=== PATIENT | female | born 1995 | race Caucasian/White ===

== ENCOUNTER 2021-11-19 10:57 | Emergency (ER) | payer OTHER, SELFPAY ==
[2021-11-19 11:14] VITALS: BP 140/81; PULSE 97; RESP 18; TEMP 36.7; O2SAT 99; BMI 37.2
--- NOTE | 2021-11-19 11:26 | ED.GENADULT ---
HPI - General Adult General Chief complaint: Dizziness Stated complaint: lightheaded Time Seen by Provider: 11/19/21 11:01 Source: patient Mode of arrival: ambulatory Limitations: no limitations History of Present Illness HPI narrative: 26-year-old female presents for lightheadedness that occurred at 10:50 this morning. 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 A co-worker said she was pale. She did not syncopize, she did not fall, no chest pain no shortness of breath. States that for the last couple of days she has had episodes of this feeling of lightheadedness. Yesterday these episodes happened twice, today the 1 time. With all of the episodes she has heart palpitations when she feels lightheaded and faint. The episodes occur when she is walking. She has insomnia and is only sleeping 5 hours a night. She will fall asleep and wake up an hour later, waking up 3 times per night. This has happened since she became . In addition she has a frontal headache that started after she was dizzy thios morning, gradual in onset, 10/25, no visual changes, no fever, no stiff neck. She is , 11 did weeks and 6 days, due date June 04. 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 Patient is not on any daily medications except for vitamins, dad had an DE in his late 30s. She is vaccinated for COVID. Has no vaginal bleeding vaginal discharge, pelvic cramping. No abdominal pain, vomiting or diarrhea. She is nauseous in the morning but is able to hold down fluids and food, states she feels that she is hydrated him and has been eating well. No dysuria, no urinary frequency, no hematuria. Related Data Allergies Allergy/AdvReac Type Severity Reaction Status Date / Time almonds Allergy Mild Rash Uncoded 11/19/21 11:28 Review of Systems Constitutional: Constitutional: Denies body ache(s), Denies chills, Denies fatigue, Denies fever(s), Reports headache(s), Denies malaise and Denies weakness Eyes: Eyes: Denies blurry vision, Denies change in vision, Denies diplopia and Denies loss of vision ENT: Reports Normal hearing present, Denies vertigo, Reports dizziness, Denies otalgia, Reports headache(s), Denies mouth pain, Denies disequilibrium, Denies post nasal drip, Denies sinus pain and Denies sore throat Cardiovascular: Cardiovascular: Denies chest pain, Denies syncope, Denies leg edema, Reports lightheadedness, Denies Loss of Consciousness, Reports palpitations and Denies dyspnea Respiratory: Respiratory: Denies chest congestion, Denies cough, Denies hemoptysis, Denies pain on inspiration and Denies dyspnea Gastrointestinal: Gastrointestinal: Denies abdominal pain, Denies hematochezia, Denies constipation, Denies diarrhea, Reports nausea (In the morning which resolves) and Denies vomiting Genitourinary: Genitourinary: Denies abnormal vaginal bleeding, Denies hematuria, Denies dysuria, Denies pelvic pain, Denies flank pain, Denies urinary urgency, Denies vaginal discharge, Denies vaginal odor and Denies vaginal pruritus Musculoskeletal: Musculoskeletal: Reports no additional musculoskeletal complaints, Denies numbness and Denies tingling Integumentary/Breasts: Skin/Breast: Denies rash Neurologic: Reports Normal hearing present, Denies Neuro-related abnormal movements, Denies Abnormal speech present, Denies burning sensations, Denies confusion, Denies vertigo, Reports dizziness, Denies syncope, Reports headache(s), Denies focal weakness, Denies loss of vision, Denies numbness, Denies Other visual disturbances, Denies convulsions, Denies seizure-like activity, Denies Sensory deficit (Neuro), Denies tingling, Denies paresthesias, Denies disequilibrium and Denies weakness Psychiatric: Psychiatric: Denies anxiety, Denies confusion and Denies depression Endocrine: Endocrine: Denies fatigue and Reports palpitations [facility] Past Medical History [facility] Narrative: , due date 06/04/2022 Medical History (Updated 11/19/21 @ 15:56 by DRISS Quiros) No known health problems Social History Social History Alcohol intake: never Patient Tobacco Use Status: Never used Tobacco Use of substances other than those prescribed or required for medical reasons: No Advance Directives: No Advance Directives Information Provided: Yes Patient : Yes Physical Exam ED Vital Signs: Vital Signs - 24 hr 11/19/21 11:14 11/19/21 12:25 11/19/21 12:43 Temperature 98.1 F Pulse Rate 97 90 81 Respiratory Rate 18 16 Blood Pressure 140/81 H 131/71 115/82 Pulse Oximetry 99 99 11/19/21 12:44 11/19/21 12:46 11/19/21 14:57 Temperature Pulse Rate 79 93 100 Respiratory Rate 16 Blood Pressure 121/53 L 122/61 130/81 Pulse Oximetry 99 BMI result Body Mass Index 37.2 Const General: healthy appearing, no acute distress, well developed, alert, awake and anxious; No confusion Nutritional Appearance: well nourished Orientation/consciousness: patient oriented x3 and No confusion Limitations: no limitations HENMT Head: Yes normal to inspection, Yes normocephalic and Yes atraumatic Ears: hearing grossly normal bilaterally, external ears normal, TM's normal bilaterally and EAC's normal General nose exam: Normal external nose present Face and sinus: Yes normal facial exam and Yes sinuses nontender Mouth: Normal oral and palatal mucosa present and malodorous breath Throat: Yes posterior oropharynx normal Eyes Conjunctivae: conjunctivae normal Pupils: Equal, round and reactive pupils present EOM: EOMs intact bilaterally and No Nystagmus present Neck Neck: Yes full ROM, Yes no lymphadenopathy and Yes supple Resp Effort & Inspection: normal respiratory effort and able to speak in complete sentences Auscultation: clear to auscultation bilaterally, no crackles, no rales, no rhonchi and no wheezes Cardio Rate: regular rate Rhythm: regular rhythm Heart sounds: S1 normal heart sound present and S2 normal heart sound present GI Inspection: Yes normal to inspection Palpation (GI): Soft to palpation, nontender, no guarding and not rigid Percussion: Yes normal to percussion Auscultation: normal bowel sounds Skin General skin exam: no rashes or lesions noted Neuro General: patient oriented x3, gait normal and No confusion Cranial nerves: Yes CN's II-XII intact bilaterally, Yes Facial sensation intact/muscles of mastication intact, Yes Equal, round and reactive pupils present, Yes Normal accommodation reflex present, Yes Bilaterally intact EOM present, Yes Nystagmus not present, Yes Normal facial strength present, Yes Midline tongue present, Yes Normal hearing present, Yes Ability to bilaterally rotate head present, Yes Ability to bilaterally elevate shoulders present and No Nystagmus present Cognition (Neuro): normal cognition Speech: No Abnormal speech present Gait exam (Neuro): Normal gait present Motor exam (neuro): 5/5 motor strength present throughout and Pronator motor function not present Sensory Exam: No Sensory deficit (Neuro) Deep tendon reflexes (DTR's): Right brachioradialis reflex intensity grade: 1+, Left brachioradialis reflex intensity grade: 1+, Right patellar reflex intensity grade: 1+ and Left patellar reflex intensity grade: 1+ Coordination: [id number] test normal, [id number] test normal and tandem gait normal Romberg Test: Negative Pupils: Normal pupillary reactivity/response: bilateral Extrem General: Yes normal to inspection and Yes full ROM Psych Appearance: grossly normal Mental Status: mental status grossly normal Speech and movement: Normal speech and movement present Affect: Anxious affect present Attitude: cooperative Thought process: Normal thought process present Course Course Course Narrative: 11:40 26-year-old female who is 11 weeks 6 days , , presents for lightheadedness, heart palpitations, insomnia, and mild headache. No pelvic pain, vaginal bleeding, abdominal pain, current nausea, vomiting, diarrhea On exam, patient has mildly increased blood pressure (140/81), she is only 12 weeks so does not meet criteria for preeclampsia, however will trend blood pressure. Patient has a completely benign neurological exam, no signs of DVT, not hypoxic or tachycardic, not short of breath, no chest pain. Discussed with Dr Allen the utility of d-dimer in patient, Dr Allen agreed that this is unlikely pulmonary embolism. Will not d-dimer at this time. Will get urine, labs including HCG, and troponin, will get EKG and perform orthostatics. Will give fluids and Tylenol. Reevaluation(s) Reevaluation #1: Negative orthostatics, labs are only remarkable for mildly elevated ALT at 35. EKG shows no ischemia, troponin 13.4. Vitals remain stable, will repeat troponin in 3 hours. Urine is negative Hcg is 62,600. On re-exam, patient's headache is resolved, she is feeling better. No lightheadedness, presyncope, vertigo, chest pain, shortness of breath, since she has been in the emergency room. Her vitals have been stable. Blood pressures are normalizing (readings of 131/71, 115/82, 121/53, 122/61) patient is less anxious. Blood pressure most recently is 122/61. Reevaluation #2: Repeat troponin is 13.8, no delta change from 13.4 Will have patient call her manager mall today to tell them about today's emergency room visit, she has an appointment early next week with them. Gave her strict return precautions, if patient has more lightheadedness, if she actually faints, she has chest pain, shortness of breath, sudden severe headache, abdominal pain, vomiting, pelvic pain, vaginal bleeding or discharge, she must return to the emergency room immediately. Patient verbalized agreement and understanding of the plan. All of her questions were answered. Medical Decision Making Lab Data Result diagrams: 11/19/21 11:47 11/19/21 11:48 Labs: Lab Results 11/19/21 11/19/21 11/19/21 Range/Units 11:47 11:47 11:48 WBC 8.9 (4.8-10.8) X10*3/uL RBC 4.83 (4.20-5.50) X10*6/uL Hgb 13.0 (12.0-16.0) g/dl Hct 40.7 (37.0-47.0) % MCV 84.3 (80.0-98.0) fL MCH 26.9 L (27.0-33.0) pg MCHC 31.9 (31.0-35.0) g/dl RDW 13.9 (11.0-16.0) % Plt Count 261 (160-400) X10*3/uL MPV 11.0 (9.4-12.3) fL Immature Gran % (Auto) 0.3 (0.0-0.4) % Neut % (Auto) 63.7 (45-73) % Lymph % (Auto) 20.6 (20-40) % [place] % (Auto) 6.4 (2-11) % Eos % (Auto) 8.7 H (0-4) % Baso % (Auto) 0.3 (0-2) % Lymph # (Auto) 1.8 (1.2-4.9) X10*3/uL [place] # (Auto) 0.6 (0.1-1.2) X10*3/uL Eos # (Auto) 0.8 H (0.0-0.4) X10*3/uL Baso # (Auto) 0.0 (0.0-0.2) X10*3/uL Abs Immat Gran (auto) 0.03 (0.00-0.03) X10*3/uL Absolute Neuts (auto) 5.7 (2.0-8.3) x10*3/uL Absolute Nucleated RBC 0.000 (0.0-0.012) X10*3/uL Nucleated RBC % (auto) 0.0 (0.0-0.2) /100WBC Sodium 136 (135-145) mmol/L Potassium 4.2 (3.3-5.1) mmol/L Chloride 104 (96-108) mmol/L Carbon Dioxide 24 (22-29) mmol/L Anion Gap 12 (12-20) BUN 9 (9-16) mg/dL Creatinine 0.66 (0.5-1.4) mg/dL Estim Creat Clear Calc 170.3 Estimated GFR > 60 Random Glucose 82 (60-115) mg/dL Calcium 9.2 (8.4-10.2) mg/dL Total Bilirubin 0.3 (0.0-1.0) mg/dL AST 20 (5-31) U/L ALT 35 H (0-31) U/L Alkaline Phosphatase 60 (39-117) U/L Troponin I High Sens 13.4 (<3.5-17.0) ng/L Total Protein 7.0 (6.5-8.0) g/dL Albumin 3.7 (3.5-5.0) g/dL Beta HCG, Quant 49745 mIU/mL Urine Color Urine Appearance Urine pH (5.0-8.0) Ur Specific [place] (1.005-1.025) Urine Protein (NEG-TRACE) MG/DL Urine Glucose (UA) (NEG) MG/DL Urine Ketones (NEG) MG/DL Urine Blood (NEG) Urine Nitrite (NEG) Ur Leukocyte Esterase (NEG) 11/19/21 11/19/21 Range/Units 13:00 15:01 WBC (4.8-10.8) X10*3/uL RBC (4.20-5.50) X10*6/uL Hgb (12.0-16.0) g/dl Hct (37.0-47.0) % MCV (80.0-98.0) fL MCH (27.0-33.0) pg MCHC (31.0-35.0) g/dl RDW (11.0-16.0) % Plt Count (160-400) X10*3/uL MPV (9.4-12.3) fL Immature Gran % (Auto) (0.0-0.4) % Neut % (Auto) (45-73) % Lymph % (Auto) (20-40) % [place] % (Auto) (2-11) % Eos % (Auto) (0-4) % Baso % (Auto) (0-2) % Lymph # (Auto) (1.2-4.9) X10*3/uL [place] # (Auto) (0.1-1.2) X10*3/uL Eos # (Auto) (0.0-0.4) X10*3/uL Baso # (Auto) (0.0-0.2) X10*3/uL Abs Immat Gran (auto) (0.00-0.03) X10*3/uL Absolute Neuts (auto) (2.0-8.3) x10*3/uL Absolute Nucleated RBC (0.0-0.012) X10*3/uL Nucleated RBC % (auto) (0.0-0.2) /100WBC Sodium (135-145) mmol/L Potassium (3.3-5.1) mmol/L Chloride (96-108) mmol/L Carbon Dioxide (22-29) mmol/L Anion Gap (12-20) BUN (9-16) mg/dL Creatinine (0.5-1.4) mg/dL Estim Creat Clear Calc Estimated GFR Random Glucose (60-115) mg/dL Calcium (8.4-10.2) mg/dL Total Bilirubin (0.0-1.0) mg/dL AST (5-31) U/L ALT (0-31) U/L Alkaline Phosphatase (39-117) U/L Troponin I High Sens 13.8 (<3.5-17.0) ng/L Total Protein (6.5-8.0) g/dL Albumin (3.5-5.0) g/dL Beta HCG, Quant mIU/mL Urine Color YELLOW Urine Appearance CLEAR Urine pH 6.5 (5.0-8.0) Ur Specific [place] 1.020 (1.005-1.025) Urine Protein NEG (NEG-TRACE) MG/DL Urine Glucose (UA) NEG (NEG) MG/DL Urine Ketones NEG (NEG) MG/DL Urine Blood NEG (NEG) Urine Nitrite NEG (NEG) Ur Leukocyte Esterase NEG (NEG) ECG Data Interpretation: Sinus at a rate of 91, HI interval 126, QRS 84, QTC 430, normal axis, no ST depressions or elevations, no T-wave abnormalities, normal EKG Discharge Plan Discharge Clinical Impression: Light-headed feeling Patient Disposition: Home, Self-Care Instructions: Lightheadedness (ED) Additional Instructions: All of your labs, your urine, and your EKG were negative today. If you have chest pain, shortness of breath, pelvic pain, vaginal bleeding, vaginal discharge, abdominal pain, nausea vomiting, or if you have lightheadedness again, or you actually faint, you must return to the emergency room immediately. Please call your manager [employer] [place], tell them what happened, see if they want to see you sooner than next Tuesday.
--- NOTE | 2021-11-19 11:29 | ECG_ITS ---
Test Reason : DIZZINESS Blood Pressure : / mmHG Vent. Rate : 091 BPM Atrial Rate : 091 BPM P-R Int : 126 ms QRS Dur : 084 ms QT Int : 350 ms P-R-T Axes : 041 075 020 degrees QTc Int : 430 ms Normal sinus rhythm Normal ECG No previous ECGs available Referred By: Ebony Starkey Electronically Signed By:SHAHLA FLOREZ MD
[2021-11-19] MEDS: Acetaminophen 325 MG TABLET 650 MG PO (11:40)
[2021-11-19 11:55] LABS: MANUAL DIFF FLAG NO
[2021-11-19 12:00] LABS: Basophils Percent Auto 0.3 % (0-2); Eosinophils Absolute Auto 0.8 X10*3/uL (0.0-0.4); Eosinophils Percent Auto 8.7 % (0-4); Hematocrit 40.7 % (37.0-47.0); Imm Gran Abs Auto 0.03 X10*3/uL (0.00-0.03); Imm Gran Pct Auto 0.3 % (0.0-0.4); Lymphocytes Absolute Auto 1.8 X10*3/uL (1.2-4.9); Lymphocytes Percent Auto 20.6 % (20-40); Mean Corpuscular HGB Conc 31.9 g/dl (31.0-35.0); Mean Corpuscular Hemoglobin 26.9 pg (27.0-33.0); Mean Corpuscular Volume 84.3 fL (80.0-98.0); Monocytes Absolute Auto 0.6 X10*3/uL (0.1-1.2); Monocytes Percent Auto 6.4 % (2-11); Neutrophils Absolute Auto 5.7 x10*3/uL (2.0-8.3); Neutrophils Percent Auto 63.7 % (45-73); Platelet Count 261 X10*3/uL (160-400); Red Blood Count 4.83 X10*6/uL (4.20-5.50); Red Cell Distribution Width 13.9 % (11.0-16.0); White Blood Count 8.9 X10*3/uL (4.8-10.8)
[2021-11-19 12:17] LABS: Alanine Aminotransferase 35 U/L (0-31); Albumin Level 3.7 g/dL (3.5-5.0); Alkaline Phosphatase 60 U/L (39-117); Anion Gap 12 (12-20); Aspartate Amino Transferase 20 U/L (5-31); Bilirubin Total 0.3 mg/dL (0.0-1.0); Blood Urea Nitrogen 9 mg/dL (9-16); Calcium 9.2 mg/dL (8.4-10.2); Carbon Dioxide 24 mmol/L (22-29); Chloride 104 mmol/L (96-108); Creatinine Clr Calc Pharmacy 170.3; Estimated Glomerular Filt Rate > 60; Glucose Random 82 mg/dL (60-115); Potassium 4.2 mmol/L (3.3-5.1); Sodium 136 mmol/L (135-145)
[2021-11-19 12:21] LABS: Troponin-I High Sensitivity 13.4 ng/L (<3.5-17.0)
--- NOTE | 2021-11-19 12:22 | PC.NURSE ---
pt tolerating po w/o issue, given copius amounts of water.
[2021-11-19 12:25] VITALS: BP 131/71; PULSE 90; RESP 16; O2SAT 99
--- NOTE | 2021-11-19 12:25 | PC.NURSE ---
ambulating to and from bathroom w steady gait for ua spec.
[2021-11-19 12:43] VITALS: BP 115/82; PULSE 81
[2021-11-19 12:44] VITALS: BP 121/53; PULSE 79
[2021-11-19 12:46] VITALS: BP 122/61; PULSE 93
[2021-11-19 12:54] LABS: HCG Quantitative 62600 mIU/mL
[2021-11-19 13:05] LABS: Appearance Urine CLEAR; Color Urine YELLOW; Glucose Urine UA NEG (NEG); Leukocyte Esterase Urine NEG (NEG); Nitrite Urine NEG (NEG); PH 6.5 (5.0-8.0); Urine Blood NEG (NEG); Urine Ketones NEG (NEG); Urine Protein NEG (NEG-TRACE)
[2021-11-19 14:57] VITALS: BP 130/81; PULSE 100; RESP 16; O2SAT 99
[2021-11-19 15:25] LABS: Troponin-I High Sensitivity 13.8 ng/L (<3.5-17.0)
== END 2021-11-19 16:14 | disposition home or self-care (01) ==
PROVIDERS: Physician Assistant; Emergency Provider Emergency Medicine
DX: O26.91 Pregnancy related conditions, unspecified, first trimester (principal); R42 Dizziness and giddiness; Z3A.11 11 weeks gestation of pregnancy
CPT/HCPCS: 36415; 80053; 81003; 84484; 84702; 85025; 93005; 96374; 99284; 99285

== ENCOUNTER 2022-11-15 07:10 | Emergency (ER) | payer OTHER, SELFPAY ==
--- NOTE | ~2022-11-15 | XR_ITS ---
EXAMINATION: XR KNEE, LEFT CLINICAL INFORMATION: Pain COMPARISON: None available. TECHNIQUE: Four views of the left knee. FINDINGS: Bone alignment is normal. No fracture or dislocation. Normal joint spaces. Small joint effusion. XR/XR knee LT 3V IMPRESSION: Small joint effusion otherwise unremarkable exam
[2022-11-15 07:42] VITALS: BP 147/94; PULSE 75; RESP 16; O2SAT 96; BMI 51.9
--- NOTE | 2022-11-15 07:51 | ED_ITS ---
HPI - Extremity Injury (Lower) General Chief Complaint: Extremity Problem Stated Complaint: L knee pain Time Seen by Provider: 11/15/22 07:22 Source: patient Mode of arrival: ambulatory Limitations: no limitations History of Present Illness complaint: knee injury Onset (ago): week(s) (1) Injury: Left: knee Type of Injury: unknown Severity: severe Severity scale (1-10): 8 Relieving factors: rest Exacerbating factors: weight bearing and movement Associated symptoms: ambulatory Other symptoms: none Treatments prior to arrival: other (none) Related Data Previous Rx's Medication Instructions Recorded meloxicam 15 mg tablet 15 mg PO DAILY #20 tabs 11/15/22 Allergies Allergy/AdvReac Type Severity Reaction Status Date / Time almonds Allergy Mild Rash Uncoded 11/15/22 07:51 PMFSH Past Medical History Medical History No known health problems Social History Social History Alcohol intake: never Patient Tobacco Use Status: Never used Tobacco Smoked in Last 30 Days: No Use of substances other than those prescribed or required for medical reasons: No Advance Directives: No Advance Directives Information Provided: Yes Patient : No Physical Exam Vital Signs: Vital Signs: Last Vital Signs Pulse 75 11/15/22 07:42 Resp 16 11/15/22 07:52 BP 147/94 H 11/15/22 07:42 Pulse Ox 96 11/15/22 07:42 O2 Del Method Room Air 11/15/22 07:42 BMI result Body Mass Index 51.9 GEN: Well developed, no acute distress, alert, oriented HEENT: Normocephalic, atraumatic, normal external ears, nose appears normal Eyes: Normal to appearance Neck: Supple, no lymphadenopathy Respiratory: Talks in complete sentences, no respiratory distress Extremities: No clubbing cyanosis or edema, no joint laxity, NVI, no effusion, tenderness along the patellar tendon, no bursitis, no deformity Neurologic: No focal neurologic deficits, cranial nerves 2-12 intact, gait normal Skin: No rash Course Course Course Narrative: Left Knee pain, nontraumatic Plan XR, APAP, NSAIDs Medications Administered Discontinued Medications Generic Name Dose Route Start Last Admin Trade Name Freq PRN Reason Stop Dose Admin Acetaminophen 975 mg 11/15/22 07:50 11/15/22 07:56 Acetaminophen 325 Mg Tablet PO 11/15/22 07:51 975 mg ONCE ONE Administration Ibuprofen 600 mg 11/15/22 07:50 11/15/22 07:57 Ibuprofen 600 Mg Tablet PO 11/15/22 07:51 600 mg ONCE ONE Administration Medical Decision Making Medical Decision Making [facility] Narrative: Acute left knee pain - non traumatic DD: arthritis, tendonitis, internal knee derrangement, sprain, strain. Plan : XR, PO meds Differential Diagnosis Differential Diagnoses: The differential diagnosis associated with the presentation includes (see above) Independent Interpretation I performed an independent interpretation of an: Plain X-Ray (Left knee: No acute disease) Prescription Management I considered prescription management with: Pain Medication Discharge Plan Discharge Clinical Impression: Acute pain of left knee Patient Disposition: Home, Self-Care Instructions: Knee Pain (ED) Additional Instructions: Meloxicam daily for 10-14 days Tylenol 1000 mg every 6 hours as needed for additional pain relief Capsaicin Cream three times daily as needed Heat/ICE as needed Prescriptions: New meloxicam 15 mg tablet 15 mg PO DAILY Qty: 20 0RF Referrals: Prasanna Stacy MD [Physician] - 1 week Stand Alone Forms: Work/School Release
[2022-11-15 07:52] VITALS: RESP 16
[2022-11-15] MEDS: Acetaminophen 325 MG TABLET 975 MG PO (07:56)
[2022-11-15] MEDS: Ibuprofen 600 MG TABLET PO (07:57)
--- NOTE | 2022-11-15 07:58 | PC.NURSE ---
Pt on stretcher, airway open and patent, no obvious signs of distress, equal chest rise and fall, no difficulty/labored breathing. Pt a&ox4, skin normal for ethnicity, warm, and dry. Lung sounds clr bilaterally. Heart sounds normal. Bowel sounds present all smith. No edema noted. Pt complaining of left knee pain for the past week. Knee unremarkable, no swelling/edema, no redness, no warmness to touch.
== END 2022-11-15 08:40 | disposition home or self-care (01) ==
PROVIDERS: Emergency Provider Emergency Medicine; PCP Pediatrics
DX: M25.562 Pain in left knee (principal)
CPT/HCPCS: 73562; 99283; 99284

== ENCOUNTER 2023-01-25 13:23 | Emergency (ER) | payer OTHER, SELFPAY ==
--- NOTE | ~2023-01-25 | XR_ITS ---
EXAMINATION: XR KNEE, RIGHT CLINICAL INFORMATION: Right knee pain COMPARISON: None available. TECHNIQUE: Four views of the right knee. FINDINGS: Bones and soft tissues are normal. No fracture or joint effusion. Alignment is anatomic. Joint spaces are well maintained. No abnormal soft tissue calcification. XR/XR knee RT 4V IMPRESSION: Normal right knee.
[2023-01-25 13:30] VITALS: BP 149/80; PULSE 76; RESP 18; O2SAT 97; BMI 53.1
--- NOTE | 2023-01-25 13:31 | ED_ITS ---
HPI - General Adult General Chief complaint: Extremity Injury, Lower Stated complaint: R Knee Pain No Injury Time Seen by Provider: 01/25/23 13:45 Source: patient Mode of arrival: ambulatory Limitations: no limitations History of Present Illness HPI narrative: 27 yo morbidly obese female presents to the ER for evaluation of right knee pain for the last 2 weeks. She denies any trauma or known injury. She states she feels clicking sensation whenever she bends her knee or when she walks down stairs. She denies any redness or significant swelling. She states the pain is worst when she is on her feet for too long or sitting in the same position for too long. complaint: right knee pain Onset (ago): week(s) (2) Location: right and lower extremity Radiation: non-radiation Severity: moderate Severity scale (1-10): 6 Quality: aching Pain Consistency: intermittent Relieving factors: rest Exacerbating factors: movement Associated symptoms: denies other symptoms Treatments prior to arrival: none Related Data Previous Rx's Medication Instructions Recorded meloxicam 15 mg tablet 15 mg PO DAILY #20 tabs 11/15/22 Allergies Allergy/AdvReac Type Severity Reaction Status Date / Time almonds Allergy Mild Rash Uncoded 11/15/22 07:51 Review of Systems Review of Systems: Yes all other systems are reviewed and are negative PMFSH Past Medical History Medical History No known health problems Social History Social History Alcohol intake: never Patient Tobacco Use Status: Never used Tobacco Advance Directives: No Physical Exam ED Vital Signs: Vital Signs - 24 hr 01/25/23 13:30 Pulse Rate 76 Respiratory Rate 18 Blood Pressure 149/80 H Pulse Oximetry 97 Oxygen Delivery Method Room Air BMI result Body Mass Index 53.1 Appearance: Alert. Oriented X3. No acute distress. HEENT: normal inspection CVS: Normal heart rate and rhythm. Pulses normal. Respiratory: No respiratory distress. Skin: Skin warm and dry. Normal skin color. Normal skin turgor. No rashes. Extremities: nromal inspection of bilateral knees. no swelling or erythema. tenderness of the infrapatellar region and medial joint line. normal passive ROM. Negative anterior drawer test. steady gait Neuro: Oriented X 3. No motor deficit. No sensory deficit. Course Course Course Narrative: This is an RME: Additional HPI, ROS, PE not included below will be deferred to primary provider. Patient is a 37 year old female with 2 weeks of right knee pain when walking and a clicking noise . Patient reports history of left knee pain but it was not as bad as this. patient reports 5/10 pain. Patient denies fevers, chills, headache, vision changes, numbness, tingling, chest pain, SOB. Plan: xray Medical Decision Making Medical Decision Making MDM Narrative: 27 yo obese female presenting with nontraumatic right knee pain x2 weeks. No appreciated joint laxity. XR is negative. Patient would benefit from orthopedics referral for further evaluation and treatment. She is ambulatory. Recommended NSAIDs, rest, ice, compression, elevation. She will follow-up with orthopedics. She is stable for discharge home. Patient agrees with plan. Differential Diagnosis Differential Diagnoses: The differential diagnosis associated with the presentation includes knee sprain, internal derangement/ligament or meninscus injury Independent Interpretation I performed an independent interpretation of an: Plain X-Ray Interpretation: X-ray reviewed, normal right knee, agrees radiology read Radiology Impression Discussion of test interpretation with radiology: I have reviewed the radiologist's reading. Radiologist Impression: 3 XR/XR knee RT 4V IMPRESSION: Normal right knee. External Record Review External record reviewed: Prior outpatient labs and Prior outpatient radiology Prescription Management I considered prescription management with: Pain Medication Chronic Conditions Patient?s care impacted by: Other (Morbid obesity) Critical Care Time Critical Care Time Critical Care Time: No Discharge Plan Discharge Clinical Impression: Acute knee pain Patient Disposition: Home, Self-Care Instructions: Knee Pain (ED) Additional Instructions: Your x-ray was normal Recommend following up with Orthopedics for further evaluation and treatment - call for an appointment Take Motrin and Tylenol for pain Wear an LAMBERTO wrap or over the counter knee brace for support If you develop new or worsening symptoms call 911 or come back to the ER for further evaluation. Prescriptions: No Action meloxicam 15 mg tablet 15 mg PO DAILY Qty: 20 0RF Ref[place]: [facility] [place]Provider Group] (right knee pain, clicking sensation) Interventions: ED Discharge Assessment Last Done: 01/25/23 15:51 Discharge Date/Time: 01/25/23 15:51
== END 2023-01-25 15:51 | disposition home or self-care (01) ==
PROVIDERS: Emergency Provider Emergency Medicine Emergency Medical Services; PCP Pediatrics
DX: M25.561 Pain in right knee (principal)
CPT/HCPCS: 73564; 99282; 99283

== ENCOUNTER 2023-03-15 07:25 | Outpatient (REF) | payer OTHER, SELFPAY ==
--- NOTE | ~2023-03-15 | XR_ITS ---
EXAMINATION: XR KNEE AP STANDING CLINICAL INFORMATION: Pain. COMPARISON: Radiographs dated 01/25/2023 and 11/15/2022. TECHNIQUE: AP bilateral standing view of the knees was obtained. An axial view of the left knee is obtained. FINDINGS: No fracture or joint effusion. Alignment is anatomic. Joint spaces are maintained. No abnormal soft tissue calcification. XR/XR knee LT 1V IMPRESSION: Normal knees.
--- NOTE | ~2023-03-15 | XR_ITS ---
EXAMINATION: XR KNEE AP STANDING CLINICAL INFORMATION: Pain. COMPARISON: Radiographs dated 01/25/2023 and 11/15/2022. TECHNIQUE: AP bilateral standing view of the knees was obtained. An axial view of the left knee is obtained. FINDINGS: No fracture or joint effusion. Alignment is anatomic. Joint spaces are maintained. No abnormal soft tissue calcification. XR/XR knee standing BI IMPRESSION: Normal knees.
== END 2023-03-15 07:26 | disposition home or self-care (01) ==
LOC: HO.HOSX 07:25
PROVIDERS: Visit Provider Physician Assistant
DX: M25.561 Pain in right knee (principal); M25.562 Pain in left knee; M22.2X9 Patellofemoral disorders, unspecified knee
CPT/HCPCS: 73560; 73565

== ENCOUNTER 2023-03-15 09:19 | Outpatient (AMB) | payer OTHER, SELFPAY ==
--- NOTE | 2023-03-15 09:28 | A.OFFVIS_ITS ---
Intake Intake Visit Reasons: New Pt - B/L knee pain Intake Note: Lennie is a 27 year old female who presents today as a new patient for a evaluation for her bilateral knee pain. Hx of Tylenol and ibuprofen with mild relief. Patient reports going to the ED department for her right knee pain on 01/25/23. She states that she feels a clicking sensation when she bends down and when going down stairs. Patient reports off and on pain for about 2 - 3 months. Allergies almonds Allergy (Mild, Uncoded 11/15/22 07:51) Rash HPI New Pt - B/L knee pain HPI Details 27-year-old female who presents in the office today, as a new patient, for an evaluation of bilateral knee pain. She states the right knee began to parveen t before the left knee. The patient reports presenting to the ED on 01/25/2023 for right knee pain. She claims to have a clicking sensation when bending down and when going up stairs. She states the click is not painful. She reports having intermittent pain in the front of the knee for around 2-3 months (11/2022-12/2022). She confirms a history of Tylenol and Ibuprofen use with mild relief. She states she is always on her feet. Patient works at [employer]. 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 No ecchymosis, erythema, or joint effusion. No tenderness to palpation to the medial or lateral joint lines. Full knee extension and flexion. Patella lateralization. NVI. Assessment & Plan Assessment & Plan (1) Patella-femoral syndrome: Comment: left Code(s): M22.2X9 - Patellofemoral disorders, unspecified knee Plan Ms. Huy Smith is a 27-year-old female who presents in the office today, as a new patient, for an evaluation of bilateral knee pain. She states the right knee began to hurt before the left knee. The patient reports presenting to the ED on 01/25/2023 for right knee pain. She claims to have a clicking sensation when bending down and when going up stairs. She states the click is not painful. She reports having intermittent pain in the front of the knee for around 2-3 months (11/2022-12/2022). She confirms a history of Tylenol and Ibuprofen use with mild relief. She states she is always on her feet. Patient works at [employer]. She will be referred to formal Physical Therapy to work on ROM and strengthening of the bilateral knees. I discussed the role of sport taping the knee to aid in patella location. I demonstrated some exercises for her to work on quad muscle strength. Follow up will be PRN, or sooner if needed. X-rays of the left knee which were obtained while in the office today and were reviewed by me, Martha Johnson PA-C, revealed no acute fracture or dislocation. Orders: Orders XR knee LT 1V Today M25.569 - Pain in unspecified knee XR knee standing BI Today M25.569 - Pain in unspecified knee PT Evaluation and Treatment Today M22.2X9 - Patellofemoral disorders, unspecified knee Patient Instructions: Scribed for Martha Johnson PA-C by Gisel Montesinos medical record assistant, on 03/15/2023 at 9:20 am, EST. Coding Level of Care Code New Pt Level 4 (79954) Diagnoses Patella-femoral syndrome M22.2X9
== END 2023-03-15 10:50 | disposition home or self-care (01) ==
PROVIDERS: PCP Pediatrics; Visit Provider Physician Assistant
DX: M22.2X1 Patellofemoral disorders, right knee (principal); M22.2X2 Patellofemoral disorders, left knee
CPT/HCPCS: 99203

== ENCOUNTER → 2023-04-05 11:43 | Outpatient (BNVA) | payer OTHER, SELFPAY | PROVIDERS: PCP Pediatrics; Visit Provider Internal Medicine | DX: Z13.89 Encounter for screening for other disorder (principal) | CPT/HCPCS: 99203 ==

== ENCOUNTER 2023-05-13 12:00 | Outpatient (RCR) | payer OTHER, SELFPAY ==
--- NOTE | 2023-04-06 12:58 | MHC.PT.EP ---
[facility] [place] Office [place] Office [place] Office [address] Britt Sterling [address] [phone] F: [phone] F: [phone] F: [phone] F: [phone] Physical Therapy Plan of Care Date of Evaluation: 04/06/23 Date of Surgery: Diagnosis: PATELLOFEMORAL DISORDER BILAT KNEES Assessment: 27 YO FEMALE REF TO PT FOR PFPS BILAT KNEES- SINCE 2021, SHE RECENTLY HAS SUSTAINED 2 FALLS , LANDING ON HER KNEES- SHE WORKS FULL-TIME IN [employer] [facility] [employer]. THE Pt HAS (+) HABITUAL GENU VALGUS WITH PRONATION, (+) LUMBOPELVIC AND PROX LEs STRENGTH DEFICITS, (+) LLI, AND PAIN IN MAXIMUS PF AREAS. THE Pt HAS DECR FUNCTIONAL SAMIA W BENDING/ SQUATTING, STAIR NAVIGATION, AND MORE PHYSICALLY DEMANDING ADLs. SHE WOULD BENEFIT FROM PT TO DEV A HEP, IMPROVE BODY MECH / WORK SIMUL, PAIN MGMT, AND ADDRESS SOFT TISSUE RESTRICTION/ IMPROVE LATERAL PATELLAR MOB. Frequency and Duration: The patient will be seen 2 x WK x 5 WKS Short Term Goals: *IMPROVE Lt LE PROPRIOCEPTION/ LUMBOPELVIC STABILITY *Pt'S LEFT KNEE PAIN DECR TO 2-3/10 *INCR FLEXIB IN PSOAS/ CALF MM TO IMPROVE EFFICIENCY OF GAIT ON LEVEL AND STAIRS *INITIATE HEP AND IMPROVE Lt PATELLAR MOB (LAT AND INF) Custodial Goals: Pt INDEP W PROGRESSIVE HEP AND SELF-SX MGMT TECHN Pt RESUME REG ADLs EVIDENT W IMPROVED LEFI SCORE BY 8-10 POINTS (AT EVAL 71/80 ) Pt INCR LE STRENGTH BY 1 GRADE *Pt DEMON EFFICIENT BODY MEC W 3:3 SIMUL WORK TASKS Treatment Plan: Modalities to reduce pain, spasms and effusion. Manual therapy to restore motion and function. Therapeutic exercise to improve strength and flexibility. Neuromuscular re-education for posture and balance. Therapeutic activities to return to functional activities of daily living. Electronically signed by: DAYTON GORMAN,PT Please sign and return to therapist. Thank you for your referral.
--- NOTE | 2023-05-13 13:10 | MHC.PT.DC ---
[facility] [place] Office [place] Office [place] Office [address] Britt Sterling [address] [phone] F: [phone] F: [phone] F: [phone] F: [phone] Physical Therapy Discharge Report Diagnosis: PATELLOFEMORAL DISORDER BILAT KNEES Date of Surgery: Date of Evaluation: 04/06/23 Date of Discharge: Treatments to Date: 7 Cancellations to Date: 0 No Shows to Date: 0 Discharge Status: Discharge Summary: Pt PROGR WELL OVERALL, SHE IS INDEP W HER HEP AND MOTIVATED TO CONT W FITNESS UPON D/C FROM PT; SHE HAS IMPROVED AWARENESS TO SELF CORRECT KNEE HYPEREXTEN, DISPLAYS IMPROVED BODY MECH AWARENESS W SIMUL WORK/ADLS; SHE HAS MET HER PT GOALS-> STRENGTH , ROM, PAIN, ADL GOALS AND IS D/C THIS DATE. Electronically signed by: Please sign and return to therapist. Thank you for your referral.
== END 2023-05-13 13:11 | disposition home or self-care (01) ==
LOC: HO.PT 12:00
PROVIDERS: PCP Pediatrics; Visit Provider Physician Assistant
DX: M22.2X2 Patellofemoral disorders, left knee (principal); M22.2X1 Patellofemoral disorders, right knee
CPT/HCPCS: 97110; 97162; 97530